=== PATIENT | male | born 1955 | race Caucasian/White ===

== ENCOUNTER 2019-08-10 06:18 | Inpatient (IN) | payer BC ==
[2019-08-06 11:48] VITALS: BMI 37.2
[2019-08-10] MEDS ORDERED: CEFAZOLIN 2 GM in DEXTROSE 5%-WATER - 100 ML IVPB ONE (06:32)
[2019-08-10] MEDS ORDERED: oxyCODONE HCL 10 MG SUSTAINED ACTING TABLET PO STA (06:32)
[2019-08-10] MEDS ORDERED: MIDAZOLAM HCL 2 MG/2 ML SINGLE DOSE VIAL ONE ×4 (07:00→10:15)
[2019-08-10] MEDS ORDERED: BUPIVACAINE HCL/PF 0.5% (5 MG/ML) 30 ML VIAL IJ ONE (07:01)
[2019-08-10] MEDS ORDERED: BUPIVACAINE LIPOSOME/PF (EXPAREL) 266 MG/20 ML VIAL ONE (07:01)
[2019-08-10] MEDS ORDERED: PROPOFOL 20 ML ONE (07:14)
[2019-08-10] MEDS ORDERED: SUCCINYLCHOLINE CHLORIDE 200 MG/10 ML SYRINGE ONE (07:23)
[2019-08-10] MEDS ORDERED: KETOROLAC TROMETHAMINE 30 MG/1 ML VIAL ONE (07:23)
[2019-08-10] MEDS ORDERED: DEXAMETHASONE SOD PHOSPHATE 4 MG/1 ML VIAL ONE (07:23)
[2019-08-10] MEDS ORDERED: ROCURONIUM BROMIDE 50 MG/5 ML SYRINGE ONE (07:24)
[2019-08-10] MEDS ORDERED: oxyCODONE HCL 5 MG TABLET PO PRN ×2 (07:38)
[2019-08-10] MEDS ORDERED: ONDANSETRON 4 MG/2 ML VIAL IVPUSH PRN ×2 (07:38→10:48)
[2019-08-10] MEDS ORDERED: LACTATED RINGERS SOLUTION 1,000 ML IV SCH (07:45)
--- NOTE | 2019-08-10 07:48 | HP ---
Admitting History and Physical - Primary Care Physician PCP: Darian Orellana - Admission Chief Complaint: Chronic LBP w/ LLE radiculopathy and foot drop History Source: Patient Limitations to Obtaining History: No Limitations - Past Medical History Cardiovascular: Yes: AFIB, Hyperlipdemia, Other (Sick Sinus Syndrome) Musculoskeletal: Yes: Chronic low back pain (with LLE radiculoapthy and foot drop) - Smoking History Smoking history: Never smoked Have you smoked in the past 12 months: No - Alcohol/Substance Use Hx Alcohol Use: Yes (SOCIALLY) History of Substance Use: reports: None - Social History ADL: Independent History of Recent Travel: No Home Medications - Allergies Allergies/Adverse Reactions: Allergies Allergy/AdvReac Type Severity Reaction Status Date / Time No Known Allergies Allergy Verified 08/10/19 06:58 - Home Medications Home Medications: Ambulatory Orders Aspirin Coated [Ecotrin -] 81 mg PO DAILY 08/06/19 Diltiazem HCl [Diltiazem 24Hr Cd] 180 mg PO DAILY 08/06/19 Ibuprofen 200 mg PO PRN PRN 08/06/19 Family Medical History Family History: Unremarkable Review of Systems - Review of Systems Constitutional: reports: No Symptoms Eyes: reports: No Symptoms HENT: reports: No Symptoms Neck: reports: No Symptoms Cardiovascular: reports: No Symptoms Respiratory: reports: No Symptoms Gastrointestinal: reports: No Symptoms Genitourinary: reports: No Symptoms Breasts: reports: No Symptoms Reported Musculoskeletal: reports: Back Pain Integumentary: reports: No Symptoms Neurological: reports: Pre-Existing Deficit (left foot drop) Endocrine: reports: No Symptoms Hematology/Lymphatic: reports: No Symptoms Psychiatric: reports: No Symptoms Physical Examination Vital Signs: Vital Signs Temperature 98.4 F 08/10/19 07:07 Pulse Rate 86 08/10/19 07:07 Respiratory Rate 16 08/10/19 07:07 Blood Pressure 121/81 08/10/19 07:07 O2 Sat by Pulse Oximetry (%) 95 08/10/19 07:14 Constitutional: Yes: Well Nourished, No Distress, Calm Eyes: Yes: WNL, Conjunctiva Clear, EOM Intact HENT: Yes: WNL, Atraumatic, Normocephalic Neck: Yes: WNL, Supple, Trachea Midline Cardiovascular: Yes: WNL, Pulse Irregular (afib rate controlled) Respiratory: Yes: WNL, Regular, CTA Bilaterally Gastrointestinal: Yes: WNL, Normal Bowel Sounds, Soft, Abdomen, Obese ...Rectal Exam: Yes: Deferred Renal/: Yes: WNL Musculoskeletal: Yes: WNL Extremities: Yes: WNL, Other (Left foot drop) Edema: No Peripheral Pulses WNL: Yes Peripheral Pulses: Left Radial: 2+, Right Radial: 2+, Left Doralis Pedis: 2+, Right Dorsalis Pedis: 2+, Left Femoral: 2+, Right Femoral: 2+ Integumentary: Yes: WNL Neurological: Yes: WNL, Alert, Oriented, Other (Left foot drop) Psychiatric: Yes: WNL, Alert, Oriented Imaging - Results MRI: Report Reviewed Problem List - Problems (1) Spondylolisthesis Code(s): M43.10 - SPONDYLOLISTHESIS, SITE UNSPECIFIED (2) Chronic low back pain Code(s): M54.5 - LOW BACK PAIN; G89.29 - OTHER CHRONIC PAIN (3) Atrial fibrillation Code(s): I48.91 - UNSPECIFIED ATRIAL FIBRILLATION (4) Hyperlipidemia Code(s): E78.5 - HYPERLIPIDEMIA, UNSPECIFIED (5) Obesity Code(s): E66.9 - OBESITY, UNSPECIFIED (6) Plantar fasciitis Code(s): M72.2 - PLANTAR FASCIAL FIBROMATOSIS (7) Hypermetropia Code(s): H52.00 - HYPERMETROPIA, UNSPECIFIED EYE Assessment/Plan NPO IVF GI PPX DVT PPX IV ABX x 1 dose pre-op Consent obtained after all risks, benefits and alternatives were explained to patient. Patient demonstrated a complete understanding was able to verbalize back as to what the plan is for today. He is in agreeable and wishes to proceed.
[2019-08-10] MEDS ORDERED: SODIUM CHLORIDE 0.9% P/F 10 ML VIAL IJ ONE (08:52)
[2019-08-10] MEDS ORDERED: ceFAZolin SODIUM 1 GM VIAL ONE ×2 (08:52→08:56)
[2019-08-10] MEDS ORDERED: ONDANSETRON 4 MG/2 ML VIAL ONE (09:02)
[2019-08-10] MEDS ORDERED: GUM MASTIC/STORAX/MSAL/ALCOHOL 1 DRP DROPSBTL MC ONE (10:22)
[2019-08-10] MEDS ORDERED: ACETAMINOPHEN 1000 MG/100 ML VIAL (NON FORMULARY) IVPB ONE ×2 (10:30→10:51)
[2019-08-10] MEDS ORDERED: diphenhydrAMINE HCL 25 MG CAPSULE (FP) PO PRN (10:48)
--- NOTE | 2019-08-10 10:48 | SURG ---
Surgery Product Safety Administrator Note Product Safety Administrator: Prince Matos PA-C Date of Service: 08/10/19 Diagnosis: Spondylolithesis. Chronic LBP, LLE radiculopathy, Left foot drop Procedure: Posterior lumbar decompression / fusion / instrumentation / transforaminal lumbar interbody fusion L4/5 / allograft implant / neuromonitoring I was present for the entirety of the operative procedure. For further detail, please refer to operative report. Visit type - Case Type Case Type: Scheduled - New patient This patient is new to me today: Yes Date on this admission: 08/10/19
--- NOTE | 2019-08-10 10:48 | OP ---
Operative Note - Note: Operative Date: 08/10/19 Pre-Operative Diagnosis: Spondylolithesis. Chronic LBP, LLE radiculopathy, Left foot drop Operation: Posterior lumbar decompression / fusion / instrumentation / transforaminal lumbar interbody fusion L4/5 / allograft implant / neuromonitoring Post-Operative Diagnosis: Same as Pre-op Surgeon: Allan Hood Reeling Operator: Prince Matos Anesthesia: Spinal (TLIP block in holding) Fluid Volume Replaced (mls): 700 (LR) Operative Report Dictated: Yes
[2019-08-10] MEDS ORDERED: diazePAM 5 MG TABLET PO PRN (10:52)
[2019-08-10] MEDS ORDERED: KETOROLAC TROMETHAMINE 30 MG/1 ML VIAL IVPUSH PRN (10:56)
[2019-08-10] MEDS ORDERED: LACTATED RINGERS SOLUTION 1,000 ML/1,000 ML INFUS.BAG IV SCH (11:00)
[2019-08-10 13:27] VITALS: TEMP 98.1
[2019-08-10] MEDS ORDERED: DOCUSATE SODIUM 100 MG CAPSULE (FP) PO SCH (14:00)
[2019-08-10] MEDS ORDERED: oxyCODONE HCL 5 MG TABLET ONE (14:36)
[2019-08-10] MEDS ORDERED: oxyCODONE HCL 5 MG TABLET PO ONE (14:45)
[2019-08-10] MEDS ORDERED: CEFAZOLIN 1 GM/D5W 1 GM/50 ML BAG IVPB SCH (15:00)
[2019-08-10] MEDS ORDERED: diazePAM 5 MG TABLET PO ONE (15:50)
[2019-08-10] MEDS ORDERED: diazePAM 5 MG TABLET ONE (15:56)
[2019-08-10 16:12] VITALS: BP 134/88; PULSE 90
--- NOTE | 2019-08-10 16:40 | OP ---
DATE OF OPERATION: 08/10/2019 PREOPERATIVE DIAGNOSES: 1. L4-5 spinal stenosis. 2. L4-5 spondylolisthesis. POSTOPERATIVE DIAGNOSES: 1. L4-5 spinal stenosis. 2. L4-5 spondylolisthesis. PROCEDURE PERFORMED: 1. Transforaminal lumbar interbody fusion L4-5. 2. Placement of instrumentation at L4-5. 3. Placement of prosthetic cage. SURGEON: Allan Hood MD DATA ENTRY REPRESENTATIVE: SAAMNTHA Travis ESTIMATED BLOOD LOSS: 50 mL. IV FLUIDS: Per anesthesia. ANESTHESIA: Spinal/TLIP block. COMPLICATIONS: There were none. DISPOSITION: Patient was brought to the PACU in stable condition. INDICATIONS FOR SURGERY: Patient is a 63-year-old gentleman who has been suffering from pain from his neck down his legs. X-rays and MRI were completed, which noted that he had spinal stenosis at L4-5 secondary to a spondylolisthesis. He had gone through an exhaustive course of treatment for this, which included medications, physical therapy as well as injections. Unfortunately, his pain continued to persist despite all this. At this point, risks, benefits, and alternatives were discussed, and the patient consented to surgery. DESCRIPTION OF PROCEDURE: Patient brought to the operating room by the anesthesia staff. After appropriate patient identification was performed, spinal anesthesia was given. The TLIP block was also given. Patient was able to position himself prone onto the OR table with all areas and bony prominences well padded at this time. The C-arm was brought in. The L4-L5 pedicles were marked off. His back was prepped and draped in a sterile manner. At this point, a time-out was completed. An incision was made bilaterally over the L4-5 pedicle. Dissection was carried down to the fascia. Fascia was then split open at this time. Under C-arm guidance, trocars were advanced into both the L4 and L5 pedicles. Through the trocars, a wire was inserted. Over the wire, a tap was performed and screws were inserted. On the left hand side, retractor blades were set up to expose the L4-5 facet joint. The facet joint was removed. The disk was entered. Using a series of pituitaries, Kerrisons, and curettes, a diskectomy was completed. The endplates were decorticated at this time. Bone graft was placed in. A cage filled with bone graft was placed in. Tulip heads were placed over this. A christen was measured and placed in. Caps and compression were applied. On the right hand side, a christen was measured and placed in. Caps and compression were applied. All extra instrumentation was removed at this time. AP and lateral x-ray confirmed the instrumentation to be in good position. The fascia was closed with a No. 1 Vicryl suture. Subcutaneous tissues were closed with a 2-0 Vicryl suture. Skin was closed with a 3-0 Monocryl suture. Dermabond was applied. Steri-Strips were applied. A sterile dressing was applied. The patient was placed supine on the OR bed, brought to the PACU in stable condition. Yvette [id number]/[id number]
[2019-08-10] MEDS ORDERED: ACETAMINOPHEN 325 MG TABLET (FP) PO SCH (17:00)
[2019-08-10] MEDS ORDERED: traMADol HCL 50 MG TABLET PO PRN (18:00)
[2019-08-11] MEDS ORDERED: ASPIRIN COATED 81 MG TABLET.EC PO SCH (10:00)
[2019-08-11] MEDS ORDERED: FOLIC ACID 1 MG TABLET (FP) PO SCH (10:00)
== END 2019-08-10 16:16 | disposition home or self-care (01) | DRG 460 ==
LOC: FM/S 06:18
PROVIDERS: ADMIT Orthopaedic Surgery Orthopaedic Surgery of the Spine; ATTEND Orthopaedic Surgery Orthopaedic Surgery of the Spine
PROC: 0SB20ZZ Excision of Lumbar Vertebral Disc, Open Approach (ICD-10-PCS; 2019-08-10)
PROC: 4A11X4G Monitoring of Peripheral Nervous Electrical Activity, Intraoperative, External Approach (ICD-10-PCS; 2019-08-10)
PROC: 0SG00AJ Fusion of Lumbar Vertebral Joint with Interbody Fusion Device, Posterior Approach, Anterior Column, Open Approach (ICD-10-PCS; principal; 2019-08-10 09:22)
DX: M48.061 Spinal stenosis, lumbar region without neurogenic claudication (principal); M43.16 Spondylolisthesis, lumbar region; M54.16 Radiculopathy, lumbar region; M21.372 Foot drop, left foot
CPT/HCPCS: 72100-TC-FY; 94760; J0131